=== PATIENT | male | born 1970 | race Caucasian/White ===

== ENCOUNTER 2019-02-01 16:00 | Emergency (ER) | payer BC, OTHER ==
--- NOTE | 2019-02-01 17:55 | EDPHYS ---
Physician Documentation [facility] Name: Ousmane Campos Age: 48 yrs Sex: Male : 1970 Arrival Date: 02/01/2019 Time: 16:08 Bed 15 Private MD: ED Physician Dorian Buenrostro HPI: 02/01 17:40 This 48 yrs old Male presents to ER via Ambulatory with complaints of Rib jr8 pain. 17:40 The patient or guardian reports chest pain that is located primarily in the right jr8 lateral anterior chest. Onset: The symptoms/episode began/occurred acutely. The pain does not radiate. Associated signs and symptoms: The patient has no apparent associated signs or symptoms. The chest pain is described as sharp. Duration: The patient or guardian reports a single episode, that is still ongoing. Modifying factors: The symptoms are alleviated by nothing. the symptoms are aggravated by activity, breathing, deep breath. Severity of pain: At its worst the pain was moderate in the emergency department the pain is unchanged. The patient has not experienced similar symptoms in the past. The patient has not recently seen a physician. Stated that he was pulling himself up on a boat and felt a pop on the right lateral abdomen. Pain since then that is not being relieved . Historical: - Allergies: 16:24 No Known Allergies; aa5 - PMHx: 16:24 None; aa5 - PSHx: 16:24 right hip; left leg; Lymph nodes removed from arm; aa5 - Immunization history:: Adult Immunizations up to date. - Social history:: Smoking status: Patient/guardian denies using tobacco. - Ebola Screening: : No symptoms or risks identified at this time. ROS: 17:40 Eyes: Negative for injury, pain, redness, and discharge, ENT: Negative for injury, jr8 pain, and discharge, Neck: Negative for injury, pain, and swelling, Respiratory: Negative for shortness of breath, cough, wheezing, and pleuritic chest pain, Abdomen/GI: Negative for abdominal pain, nausea, vomiting, diarrhea, and constipation, Back: Negative for injury and pain, MS/Extremity: Negative for injury and deformity, Skin: Negative for injury, rash, and discoloration, Neuro: Negative for headache, weakness, numbness, tingling, and seizure. 17:40 Cardiovascular: Positive for chest pain, with cough, with movement, Negative for edema, orthopnea, palpitations, paroxysmal nocturnal dyspnea. Exam: 17:40 Eyes: Pupils equal round and reactive to light, extra-ocular motions intact. Lids and jr8 lashes normal. Conjunctiva and sclera are non-icteric and not injected. Cornea within normal limits. Periorbital areas with no swelling, redness, or edema. ENT: Nares patent. No nasal discharge, no septal abnormalities noted. Tympanic membranes are normal and external auditory canals are clear. Oropharynx with no redness, swelling, or masses, exudates, or evidence of obstruction, uvula midline. Mucous membranes moist. Neck: Trachea midline, no thyromegaly or masses palpated, and no cervical lymphadenopathy. Supple, full range of motion without nuchal rigidity, or vertebral point tenderness. No Meningismus. Cardiovascular: Regular rate and rhythm with a normal S1 and S2. No gallops, murmurs, or rubs. Normal PMI, no JVD. No pulse deficits. Respiratory: Lungs have equal breath sounds bilaterally, clear to auscultation and percussion. No rales, rhonchi or wheezes noted. No increased work of breathing, no retractions or nasal flaring. Abdomen/GI: Soft, non-tender, with normal bowel sounds. No distension or tympany. No guarding or rebound. No evidence of tenderness throughout. Back: No spinal tenderness. No costovertebral tenderness. Full range of motion. Skin: Warm, dry with normal turgor. Normal color with no rashes, no lesions, and no evidence of cellulitis. MS/ Extremity: Pulses equal, no cyanosis. Neurovascular intact. Full, normal range of motion. Neuro: Awake and alert, GCS 15, oriented to person, place, time, and situation. Cranial nerves II-XII grossly intact. Motor strength 5/5 in all extremities. Sensory grossly intact. Cerebellar exam normal. Normal gait. 17:40 Chest/axilla: Inspection: normal, Palpation: tenderness, that is mild, of the right lateral anterior chest, Axilla: are normal, Lymph nodes: lymphadenopathy is not appreciated. Vital Signs: 16:24 BP 134 / 80; Pulse 71; Resp 16 S; Temp 98.0(TE); Pulse Ox 98% on R/A; Weight 124.74 kg aa5 (R); Height 5 ft. 9 in. (175.26 cm) (R); Pain 3/10; 17:32 BP 125 / 82; Pulse 72; Resp 18; Temp 98.2; Pulse Ox 100% on R/A; Pain 5/10; mg2 17:58 BP 106 / 78; Pulse 70; Resp 18; Temp 98.8; Pulse Ox 100% on R/A; Pain 1/10; mg2 16:24 Body Mass Index 40.61 (124.74 kg, 175.26 cm) aa5 MDM: 16:29 Patient medically screened. snw 17:53 Data reviewed: vital signs, nurses notes, radiologic studies, plain films. Data jr8 interpreted: Pulse oximetry: on room air is 100 %. Interpretation: normal. Counseling: I had a detailed discussion with the patient and/or guardian regarding: the historical points, exam findings, and any diagnostic results supporting the discharge/admit diagnosis, radiology results, the need for outpatient follow up, a family practitioner, to return to the emergency department if symptoms worsen or persist or if there are any questions or concerns that arise at home. 02/01 16:58 Order name: XRAY Ribs RIGHT jr8 02/01 16:58 Order name: XRAY Chest (1 view) jr8 Administered Medications: No medications were administered Disposition: 02/02 07:05 Co-signature as Attending Physician, Dorian Buenrostro MD I agree with the assessment and iván plan of care. Disposition: 02/01/19 17:54 Discharged to Home. Impression: Chest wall strain . - Condition is Stable. - Discharge Instructions: Chest Wall Pain. - Prescriptions for Ibuprofen 800 mg Oral Tablet - take 1 tablet by ORAL route every 12 hours As needed take with food; 20 tablet. Tylenol- Codeine #3 300-30 mg Oral Tablet - take 2 tablets by ORAL route every 6 hours As needed; 12 tablet. - Medication Reconciliation Form, Thank You Letter, Antibiotic Education, Prescription Opioid Use form. - Follow up: Private Physician; When: 5 - 6 days; Reason: Recheck today's complaints, Continuance of care, Re-evaluation by your physician. - Problem is new. - Symptoms have improved. Signatures: Dispatcher [employer] Dorian Oneill MD MD cha Therrien, Shelly, PHYSICIAN SURGEON-C PHYSICIAN SURGEON-Csnw Bindu Leon RN RN aa5 Martell Coulter PA PA jr8 Alberto Lopez, RN RN mg2 Corrections: (The following items were deleted from the chart) 02/01 18:00 17:54 02/01/2019 17:54 Discharged to Home. Impression: Chest wall strain . Condition is mg2 Stable. Forms are Medication Reconciliation Form, Thank You Letter, Antibiotic Education, Prescription Opioid Use. Follow up: Private Physician; When: 5 - 6 days; Reason: Recheck today's complaints, Continuance of care, Re-evaluation by your physician. Problem is new. Symptoms have improved. jr8
--- NOTE | 2019-02-01 17:55 | ER ---
Nurse's Notes [facility] Name: Ousmane Campos Age: 48 yrs Sex: Male : 1970 Arrival Date: 02/01/2019 Time: 16:08 Bed 15 Private MD: Diagnosis: Chest wall strain Presentation: 02/01 16:23 Presenting complaint: Patient states: "I think I hurt my rib trying to pull myself back aa5 into a boat on Wednesday". Pt c/o pain to right lower rib cage. Transition of care: patient was not received from another setting of care. Onset of symptoms was January 2019. Risk Assessment: Do you want to hurt yourself or someone else? Patient reports no desire to harm self or others. Initial Sepsis Screen: Does the patient meet any 2 criteria? No. Patient's initial sepsis screen is negative. Does the patient have a suspected source of infection? No. Patient's initial sepsis screen is negative. Care prior to arrival: None. 16:23 Method Of Arrival: Ambulatory aa5 16:23 Acuity: SAILAJA 4 aa5 Historical: - Allergies: 16:24 No Known Allergies; aa5 - PMHx: 16:24 None; aa5 - PSHx: 16:24 right hip; left leg; Lymph nodes removed from arm; aa5 - Immunization history:: Adult Immunizations up to date. - Social history:: Smoking status: Patient/guardian denies using tobacco. - Ebola Screening: : No symptoms or risks identified at this time. Screenin:40 Abuse screen: Denies threats or abuse. Denies injuries from another. Nutritional mg2 screening: No deficits noted. Tuberculosis screening: No symptoms or risk factors identified. Fall Risk None identified. Assessment: 16:45 General: Appears in no apparent distress. comfortable, Behavior is calm, cooperative. mg2 Pain: Complains of pain in right side of the trunk Pain does not radiate. Pain currently is 3 out of 10 on a pain scale. Quality of pain is described as aching, sore Pain began 2-3 days ago. Is intermittent, Alleviated by medications, repositioning, Aggravated by increased activity, repositioning. Neuro: Level of Consciousness is awake, alert, obeys commands, Oriented to person, place, time, situation. Cardiovascular: Capillary refill < 3 seconds Patient's skin is warm and dry. Respiratory: Airway is patent Respiratory effort is even, unlabored, Respiratory pattern is regular, symmetrical. GI: No signs and/or symptoms were reported involving the gastrointestinal system. : No signs and/or symptoms were reported regarding the genitourinary system. EENT: No signs and/or symptoms were reported regarding the EENT system. Derm: Skin is intact, is healthy with good turgor, Skin is pink, warm \\T\\ dry. normal. Musculoskeletal: Circulation, motion, and sensation intact. Capillary refill < 3 seconds, Reports pain in right side of the trunk since 3 days worst last night. Vital Signs: 16:24 BP 134 / 80; Pulse 71; Resp 16 S; Temp 98.0(TE); Pulse Ox 98% on R/A; Weight 124.74 kg aa5 (R); Height 5 ft. 9 in. (175.26 cm) (R); Pain 3/10; 17:32 BP 125 / 82; Pulse 72; Resp 18; Temp 98.2; Pulse Ox 100% on R/A; Pain 5/10; mg2 17:58 BP 106 / 78; Pulse 70; Resp 18; Temp 98.8; Pulse Ox 100% on R/A; Pain 1/10; mg2 16:24 Body Mass Index 40.61 (124.74 kg, 175.26 cm) aa5 ED Course: 16:08 Patient arrived in ED. mr 16:24 Triage completed. aa5 16:24 Arm band placed on. aa5 16:29 Jackie Dean FNP-C is PHCP. snw 16:29 Dorian Buenrostro MD is Attending Physician. snw 16:30 Alberto Lopez, SHAY is Primary Nurse. mg2 16:32 PHCP role handed off by Jackie Dean FNP-C jr8 16:32 Martell Coulter PA is PHCP. jr8 16:45 No provider procedures requiring assistance completed. Patient did not have IV access mg2 during this emergency room visit. 16:47 Patient has correct armband on for positive identification. mg2 17:28 XRAY Ribs RIGHT In Process Unspecified. EDMS 17:28 XRAY Chest (1 view) In Process Unspecified. EDMS Administered Medications: No medications were administered Outcome: 17:54 Discharge ordered by . jr8 18:00 Discharged to home ambulatory. mg2 18:00 Condition: stable 18:00 Discharge instructions given to patient, Instructed on discharge instructions, follow up and referral plans. medication usage, Demonstrated understanding of instructions, follow-up care, Prescriptions given X 2. 18:00 Patient left the ED. mg2 Signatures: Dispatcher [employer] EDMS Jackie Dean, BELLMAN CAPTAIN-C BELLMAN CAPTAIN-Csnw Gracie Jimenez mr LeonBindu, RN RN reginald5 Martell Coulter PA PA jr8 Alberto Lopez RN RN mg2
--- NOTE | 2019-02-02 15:12 | RAD REPORT ---
EXAM DESCRIPTION: Nilo Single View02/02/2019 11:36 am CLINICAL HISTORY: Chest pain COMPARISON: none FINDINGS: The lungs appear clear of acute infiltrate. The heart is normal size IMPRESSION: No acute abnormalities displayed
--- NOTE | 2019-02-02 15:30 | RAD REPORT ---
EXAM DESCRIPTION: Ribs Right - 02/02/2019 11:36 am CLINICAL HISTORY: Right rib pain FINDINGS: Equivocal fracture involves the anterior right fourth rib. No additional fracture
== END 2019-02-01 18:00 | disposition home or self-care (01) ==
LOC: ER 16:00
DX: S29.011A Strain of muscle and tendon of front wall of thorax, initial encounter (principal); X50.9XXA Other and unspecified overexertion or strenuous movements or postures, initial encounter
CPT/HCPCS: 71045; 99283

== ENCOUNTER 2024-07-17 06:05 | Emergency (ER) | payer BC ==
[2024-07-17] MEDS ORDERED: KETOROLAC 30 MG/ML INJ ONE (06:45)
[2024-07-17] MEDS ORDERED: MORPHINE 4 MG/ML SYR ONE (06:45)
[2024-07-17] MEDS ORDERED: dexAMETHasone 10 MG/ML VIAL ONE (06:45)
--- NOTE | 2024-07-17 07:55 | EDPHYS ---
Physician Documentation [facility] Name: Oumsane Campos Age: 54 yrs Sex: Male : 1970 Arrival Date: 07/17/2024 Time: 06:05 Bed 13 Private MD: ED Physician Parker Whipple HPI: 07/17 07:51 This 54 yrs old Male presents to ER via Ambulatory with complaints of Knee Pain. rn 07:51 Patient reports history of multiple joint pains including bilateral knees and bilateral rn great toes. Thinks he has had gout for some time but is undiagnosed. No fever or chills. No IV drug use. Reports pain to both knees worse on the left and pain in both feet and great toes. Also pain in right hand and wrist.. Historical: - Allergies: 06:35 No Known Allergies; cp4 - Immunization history:: Adult Immunizations. - Infectious Disease History:: Denies. - Social history:: Smoking status: Patient denies any tobacco usage or history of. - Family history:: not pertinent. - Hospitalizations: : No recent hospitalization is reported. ROS: 07:51 Constitutional: Negative for fever, chills, and weight loss, Cardiovascular: Negative rn for chest pain, palpitations, and edema, Respiratory: Negative for shortness of breath, cough, wheezing, and pleuritic chest pain, Abdomen/GI: Negative for abdominal pain, nausea, vomiting, diarrhea, and constipation, MS/Extremity: Positive for pain to multiple joints including knees and feet and right hand Skin: Negative for injury, rash, and discoloration, Exam: 07:51 Constitutional: This is a well developed, well nourished patient who is awake, alert, rn appears in pain Cardiovascular: Regular rate and rhythm. No pulse deficits. MS/ Extremity: Pulses equal, no cyanosis. Neurovascular intact. Painful range of motion of bilateral knees, no redness or warmth noted. Mild left knee effusion with painful range of motion of right hand fingers/bilateral knees/great toes of bilateral feet. Vital Signs: 06:29 BP 129 / 81; Pulse 100; Resp 18; Temp 98.3; Pulse Ox 99% ; Weight 120.2 kg; Height 5 cp4 ft. 10 in. ; Pain 10/10; 06:29 Body Mass Index 38.02 (120.20 kg, 177.8 cm) cp4 06:29 Pain Scale: Adult cp4 MDM: 06:25 Medical Screening Exam initiated rn 07:51 Differential diagnosis: Gout, polyarthritis. Data reviewed: vital signs, nurses notes, rn and as a result, I will discharge patient. Counseling: I had a detailed discussion with the patient and/or guardian regarding the historical points, exam findings, and any diagnostic results supporting the discharge/admit diagnosis, the need for outpatient follow up, to return to the emergency department if symptoms worsen or persist or if there are any questions or concerns that arise at home. Special discussion: I discussed with the patient/guardian in detail that at this point there is no indication for admission to the hospital. It is understood, however, that if the symptoms persist or worsen the patient needs to return immediately for re-evaluation. Based on the history and exam findings, there is no indication for further emergent testing or inpatient evaluation. I discussed with the patient/guardian the need to see the control integration engineer for further evaluation of the symptoms. 07/17 06:36 Order name: IV Start; Complete Time: 06:42 rn Administered Medications: 06:50 Drug: morphine IVP or IV 4 mg IVP once over 4 mins Route: IVP; Infused Over: 4 mins; cp4 Site: right antecubital; 06:50 Drug: Ketorolac IVP 30 mg IVP once Route: IVP; Site: right antecubital; cp4 06:50 Drug: Decadron - Dexamethasone IVP 10 mg IVP once Route: IVP; Site: right antecubital; cp4 Disposition Summary: 07/17/24 07:54 Discharge Ordered Notes: Location: Home rn Problem: an ongoing problem rn Symptoms: have improved rn Condition: Stable rn Diagnosis - Polyarthritis, unspecified rn Followup: rn - With: Private Physician - When: As needed - Reason: Recheck today's complaints, Re-evaluation by your physician Discharge Instructions: - Discharge Summary Sheet rn - Arthritis rn - Gout rn Forms: - Medication Reconciliation Form rn - Antibiotic pattern marker - Prescription Opioid Use rn - Patient Portal Instructions rn - Leadership Thank You Letter rn Prescriptions: - Diclofenac Sodium 75 mg Oral Tablet Sustained Release - take 1 tablet ORAL route 2 times per day; 30 tablet; Refills: 0, Product rn Selection Permitted - Tramadol 50 mg Oral Tablet - take 1 tablet ORAL route every 8 hours as needed; 12 tablet; Refills: 0, rn Product Selection Permitted - Medrol (David) 4 mg Oral Tablets, Dose Pack - take 1 tablet ORAL route as directed - follow package instructions; 1 packet; rn Refills: 0, Product Selection Permitted Signatures: Parker Whipple MD MD rn Potter, Christina cp4
--- NOTE | 2024-07-17 07:55 | ER ---
Nurse's Notes [facility] Name: Ousmane Campos Age: 54 yrs Sex: Male : 1970 Arrival Date: 07/17/2024 Time: 06:05 Bed 13 Private MD: Diagnosis: Polyarthritis, unspecified Presentation: 07/17 06:29 Chief complaint: Patient states: left knee pain that started a couple of days ago. cp4 Coronavirus screen: Client denies travel out of the [place] in the last 14 days. At this time, the client does not indicate any symptoms associated with coronavirus-19. Ebola Screen: Patient negative for fever greater than or equal to 101.5 degrees Fahrenheit, and additional compatible Ebola Virus Disease symptoms Patient denies exposure to infectious person. Patient denies travel to an Ebola-affected area in the 21 days before illness onset. No symptoms or risks identified at this time. Initial Sepsis Screen: Does the patient meet any 2 criteria? HR > 90 bpm. No. Patient's initial sepsis screen is negative. Does the patient have a suspected source of infection? No. Patient's initial sepsis screen is negative. Risk Assessment: Do you want to hurt yourself or someone else? Patient reports no desire to harm self or others. Onset of symptoms is unknown. 06:29 Method Of Arrival: Ambulatory 4 06:29 Acuity: SAILAJA 4 cp4 Triage Assessment: 06:35 General: Appears in no apparent distress. uncomfortable, Behavior is calm, cooperative, cp4 appropriate for age. Pain: Complains of pain in left knee Pain currently is 10 out of 10 on a pain scale. EENT: No signs and/or symptoms were reported regarding the EENT system. Neuro: Level of Consciousness is awake, alert, obeys commands, Oriented to person, place, time, situation. Cardiovascular: Patient's skin is warm and dry. Respiratory: Airway is patent Respiratory effort is even, unlabored. GI: No signs and/or symptoms were reported involving the gastrointestinal system. : No signs and/or symptoms were reported regarding the genitourinary system. Derm: No signs and/or symptoms reported regarding the dermatologic system. Musculoskeletal: Reports pain in left knee. Historical: - Allergies: 06:35 No Known Allergies; cp4 - Immunization history:: Adult Immunizations. - Infectious Disease History:: Denies. - Social history:: Smoking status: Patient denies any tobacco usage or history of. - Family history:: not pertinent. - Hospitalizations: : No recent hospitalization is reported. Screenin:[address] [facility] ED Fall Risk Assessment (Adult) History of falling in the last 3 months, cp4 including since admission No falls in past 3 months (0 pts) Confusion or Disorientation No (0 pts) Intoxicated or Sedated No (0 pts) Impaired Gait No (0 pts) Mobility Assist Device Used No (0 pt) Altered Elimination No (0 pt) Score/Fall Risk Level 0 - 2 = Low Risk Oriented to surroundings, Maintained a safe environment, Assessed \T\ reinforced patient's understanding of fall precautions, Hourly rounding (assess needs \T\ fall precautionary measures) done. Abuse screen: Denies threats or abuse. Nutritional screening: No deficits noted. Tuberculosis screening: No symptoms or risk factors identified. Assessment: 06:36 Reassessment: No changes from previously documented assessment. cp4 07:22 General: Appears in no apparent distress. uncomfortable, Behavior is calm, cooperative. rs5 Pain: Complains of pain in left knee Pain currently is 3 out of 10 on a pain scale. Quality of pain is described as aching, Is continuous. Neuro: Level of Consciousness is awake, alert, obeys commands, Oriented to person, place, time, situation. Cardiovascular: Patient's skin is warm and dry. Respiratory: Airway is patent Respiratory effort is even, unlabored, Respiratory pattern is regular, symmetrical. GI: Abdomen is round non-distended, Abd is soft and non tender X 4 quads. : No signs and/or symptoms were reported regarding the genitourinary system. EENT: No signs and/or symptoms were reported regarding the EENT system. Derm: Skin is intact, Skin is pink, warm \T\ dry. Musculoskeletal: Range of motion: limited in left knee. Vital Signs: 06:29 BP 129 / 81; Pulse 100; Resp 18; Temp 98.3; Pulse Ox 99% ; Weight 120.2 kg; Height 5 cp4 ft. 10 in. ; Pain 10/10; 06:29 Body Mass Index 38.02 (120.20 kg, 177.8 cm) cp4 06:29 Pain Scale: Adult cp4 ED Course: 06:08 Patient arrived in ED. 2 06:25 Parker Whipple MD is Attending Physician. rn 06:29 Azalia Mcdonald is Primary Nurse. cp4 06:35 Triage completed. cp4 06:35 Arm band placed on right wrist. Patient placed in waiting room. cp4 06:36 Bed in low position. Call light in reach. Side rails up X 1. Provided Education on: cp4 knee pain. 06:36 No provider procedures requiring assistance completed. cp4 06:42 Inserted saline lock: 20 gauge in right antecubital area, using aseptic technique. cp4 Flushed with 10 mL NS. Administered Medications: 06:50 Drug: morphine IVP or IV 4 mg IVP once over 4 mins Route: IVP; Infused Over: 4 mins; cp4 Site: right antecubital; 06:50 Drug: Ketorolac IVP 30 mg IVP once Route: IVP; Site: right antecubital; cp4 06:50 Drug: Decadron - Dexamethasone IVP 10 mg IVP once Route: IVP; Site: right antecubital; cp4 Medication: 06:36 VIS not applicable for this client. cp4 Outcome: 07:54 Discharge ordered by . rn 08:12 Patient left the ED. rs5 Signatures: Parker Whipple MD MD rn Sotelo, Ricky, RN RN rs5 Azalia Mcdonald cp4 Frida Sheehan [facility] Corrections: (The following items were deleted from the chart) 06:37 06:36 Patient did not have IV access during this emergency room visit. cp4 cp4
[2024-07-17 08:23] VITALS: BP 129/81; TEMP 98.3; O2SAT 99
== END 2024-07-17 08:12 | disposition home or self-care (01) ==
LOC: ER 06:05
DX: M13.0 Polyarthritis, unspecified (principal)
CPT/HCPCS: 96374; 96375; 99284; J1100